=== PATIENT | female | born 1950 | race Two or more races ===

== ENCOUNTER 2019-03-16 13:15 | Inpatient (IN) | payer OTHER ==
[~2019-03-16] VITALS: Ht 162.6 cm; Wt 101.6 kg
[2019-03-16] MEDS ORDERED: XARELTO20 MG PO (15:06)
[2019-03-16] MEDS ORDERED: COZAAR50 MG PO (15:07)
[2019-03-16] MEDS ORDERED: SYNTHROID50 MCG PO (15:08)
[2019-03-16] MEDS ORDERED: BUSPIRONE HCL15 MG PO (15:08)
[2019-03-16] MEDS ORDERED: CRESTOR10 MG PO (15:09)
== END 2019-03-26 11:52 | disposition home or self-care (01) | DRG 743 ==
LOC: ADM 13:15 → EDSTATUS 13:15 → O/R 03-25 06:06 → SURG 03-25 06:06 → SURH 03-25 13:15 → SURG 03-25 17:43
PROVIDERS: Obstetrics & Gynecology Gynecologic Oncology; ADMIT Surgery
PROC: 0UT24ZZ Resection of Bilateral Ovaries, Percutaneous Endoscopic Approach (ICD-10-PCS; 2019-03-25)
PROC: 0UT94ZZ Resection of Uterus, Percutaneous Endoscopic Approach (ICD-10-PCS; principal; 2019-03-25 15:15)
PROC: 0UT74ZZ Resection of Bilateral Fallopian Tubes, Percutaneous Endoscopic Approach (ICD-10-PCS; 2019-03-25 15:15)
DX: D25.1 Intramural leiomyoma of uterus (principal); D25.0 Submucous leiomyoma of uterus; N72 Inflammatory disease of cervix uteri; N94.89 Other specified conditions associated with female genital organs and menstrual cycle; I10 Essential (primary) hypertension; E11.9 Type 2 diabetes mellitus without complications; Z79.4 Long term (current) use of insulin

== ENCOUNTER 2023-04-17 09:49 | Outpatient (CLI) | payer OTHER ==
[~2023-04-17 09:49] MED LIST: BUSPIRONE HCL15 MG PO; COZAAR50 MG PO; CRESTOR10 MG PO; SYNTHROID50 MCG PO; XARELTO20 MG PO
== END 2023-04-17 09:55 | disposition home or self-care (01) ==
LOC: RX STUDY 09:49
PROVIDERS: ATTEND Internal Medicine Gastroenterology
DX: R13.19 Other dysphagia (principal)

== ENCOUNTER 2024-05-03 10:56 | Outpatient (CLI) | payer OTHER | END 2024-05-03 11:00 | disposition home or self-care (01) | LOC: SONOGRAMA 10:56 | PROVIDERS: ATTEND Pathology Anatomic Pathology & Clinical Pathology | DX: E04.2 Nontoxic multinodular goiter (principal); D34 Benign neoplasm of thyroid gland; E07.89 Other specified disorders of thyroid ==